=== PATIENT | male | born 1945 | race Caucasian/White ===

== ENCOUNTER 2016-04-22 01:45 | Emergency (ER) | payer OTHER ==
[2016-04-22 03:12] LABS: Albumin 3.9 g/dL (3.2-5.2); Calcium 9.5 mg/dL (8.6-10.3); EGFR African American 128.8 (>60); EGFR Non-African American 100.2 (>60); Globulin 3.2 g/dL (2-4); Hematocrit 42 % (42-52); Hemoglobin 14.1 g/dl (14.0-18.0); Magnesium 2.1 mg/dL (1.9-2.7); Mean Corpuscular HGB Conc 33 g/dl (31-36); Mean Corpuscular Hemoglobin 30 pg (27-31); Mean Corpuscular Volume 90 fL (80-94); Mean Platelet Volume 9 um3 (7.4-10.4); Potassium 3.6 mmol/L (3.5-5.0); Red Blood Count 4.67 10^6/ul (4.0-5.4); Red Cell Distribution Width 14 % (10.5-15); Total Bilirubin 0.7 mg/dL (0.2-1.0); Total Protein 7.1 g/dL (6.4-8.9); White Blood Count 12.3 10^3/ul (3.5-10.8)
--- NOTE | 2016-04-22 03:14 | ED ---
Primo Soliz Erika, scribed for Prasanna Guallpa MD on 04/22/16 at 0242 . HPI Chest Pain - HPI Summary HPI Summary: Patient is a 70-year-old male presenting to the ED with a CC of constant chest pain starting at 17:30. Pain is located across the lower chest bilaterally. Patient reports that he had just been exerting himself when the pain began - pt did exercises and collected trash from around the house. Pt took Gas-X after the pain began, which alleviated the pain for a few minutes, but it then returned. Pain is not aggravated by deep breathing or movement. Currently, patient reports pain is a 6/10. He also notes slight nausea. Pt did not eat dinner tonight. Hx rectal cancer with surgery in 2009. - History of Current Complaint Chief Complaint: EDChestPainROMI Time Seen by Provider: 04/22/16 02:32 Hx Obtained From: Patient, Family/Cherry Grower - Onset/Duration: Started Hours Ago, Atraumatic, Still Present Timing: Constant Current Severity: Moderate Pain Intensity: 7 Pain Scale Used: 0-10 Numeric Chest Pain Location: Diffuse - lower chest Chest Pain Radiates: No Aggravating Factor(s): Nothing Alleviating Factor(s): Other: - Gas-X helped for a few minutes Associated Signs and Symptoms: Positive: Nausea - Additional Pertinent History Primary Care Physician: [id number] - Allergy/Home Medications Allergies/Adverse Reactions: Allergies Allergy/AdvReac Type Severity Reaction Status Date / Time No Known Allergies Allergy Verified 04/22/16 01:57 Home Medications: Home Medications Atorvastatin* [Lipitor*] 10 mg PO 2100 04/22/16 [History Confirmed 04/22/16] Citalopram TAB* [CeleXA TAB*] 10 mg PO DAILY 04/22/16 [History Confirmed ] Clorazepate TAB* [Tranxene TAB*] 7.5 mg PO QPM 04/22/16 [History Confirmed 04/22] Ergocalciferol [Vitamin D2] 50,000 unit PO WEEKLY 04/22/16 [History Confirmed ] PMH/Surg Hx/FS Hx/Imm Hx Endocrine/Hematology History: Reports: Hx Thyroid Disease - hyperthyroidism Denies: Hx Diabetes, Hx Systemic Lupus Erythematosus Cardiovascular History: Reports: Hx Hypertension, Hx Syncope - pre-syncope Denies: Hx Angina, Hx Congestive Heart Failure, Hx Coronary Artery Disease, Hx Hypercholesterolemia, Hx Myocardial Infarction, Hx Valvular Heart Disease Respiratory History: Reports: Hx Chronic Obstructive Pulmonary Disease (COPD), Hx Sleep Apnea Denies: Hx Asthma GI History: Reports: Hx Ileostomy - Fall 2009, Other GI Disorders - rectal cancer, with ileostomy, had radiation and chemo History: Reports: Other Problems/Disorders - hesitancy s/p radiation Denies: Hx Renal Disease Musculoskeletal History: Reports: Hx Arthritis, Hx Back Problems Denies: Hx Rheumatoid Arthritis Sensory History: Reports: Hx Contacts or Glasses Opthamlomology History: Reports: Hx Contacts or Glasses - Cancer History Cancer Type, Location and Year: RECTAL CANCER 6 YEARS AGO Hx Chemotherapy: Yes Hx Radiation Therapy: Yes - Surgical History Surgery Procedure, Year, and Place: STOMA TO LEFT SIDE APROX 6 YEARS AGO, RIGHT KNEE SURGERY, TONSILECTOMY Hx Anesthesia Reactions: No - Immunization History Date of Tetanus Vaccine: utd Date of Influenza Vaccine: fall 2015 Infectious Disease History: No Infectious Disease History: Denies: Traveled Outside the [place] in Last 30 Days - Family History Known Family History: Negative: Cardiac Disease, Hypertension - Social History Alcohol Use: Rare Alcohol Amount: 3-6 beers/day Substance Use Type: Reports: None Substance Use Comment - Amount & Last Used: none in last 5 days, per pt, d/t illness Smoking Status (MU): Former Smoker Type: Cigarettes Amount Used/How Often: 7 cigarettes per day Have You Smoked in the Last Year: Yes Review of Systems Positive: Chest Pain Positive: Nausea All Other Systems Reviewed And Are Negative: Yes Physical Exam Triage Information Reviewed: Yes Vital Signs On Initial Exam: Initial Vitals Temp Pulse Resp BP Pulse Ox 97.8 F 57 18 163/89 100 04/22/16 01:45 04/22/16 01:45 04/22/16 01:45 04/22/16 01:45 04/22/16 01:45 Vital Signs Reviewed: Yes Appearance: Positive: Well-Appearing, No Pain Distress Skin: Positive: Warm Head/Face: Positive: Normal Head/Face Inspection Eyes: Positive: EOMI, SADAF ENT: Positive: Hearing grossly normal Neck: Positive: Supple Respiratory/Lung Sounds: Positive: Clear to Auscultation, Breath Sounds Present Cardiovascular: Positive: RRR. Negative: Murmur Abdomen Description: Positive: Nontender, Soft Bowel Sounds: Positive: Present Musculoskeletal: Positive: Strength/ROM Intact Neurological: Positive: Sensory/Motor Intact, Alert, Oriented to Person Place, Time Psychiatric: Positive: Affect/Mood Appropriate - Joselo Coma Scale Coma Scale Total: 15 Diagnostics - Vital Signs Vital Signs Temp Pulse Resp BP Pulse Ox 04/22/16 01:45 97.8 F 57 18 163/89 100 - Laboratory Lab Results: Lab Results 04/22/16 04/22/16 Range/Units 02:40 02:40 Sodium 133 (133-145) mmol/L Potassium 3.6 (3.5-5.0) mmol/L Chloride 103 (101-111) mmol/L Carbon Dioxide 24 (22-32) mmol/L Anion Gap 6 (2-11) mmol/L BUN 10 (6-24) mg/dL Creatinine 0.77 (0.67-1.17) mg/dL Est GFR ( Amer) 128.8 (>60) Est GFR (Non-Af Amer) 100.2 (>60) BUN/Creatinine Ratio 13.0 (8-20) Glucose 101 H (70-100) mg/dL Lactic Acid 1.5 (0.5-2.0) mmol/L Calcium 9.5 (8.6-10.3) mg/dL Magnesium 2.1 (1.9-2.7) mg/dL Total Bilirubin 0.70 (0.2-1.0) mg/dL AST 39 (13-39) U/L ALT 36 (7-52) U/L Alkaline Phosphatase 81 (34-104) U/L Troponin I Pending Total Protein 7.1 (6.4-8.9) g/dL Albumin 3.9 (3.2-5.2) g/dL Globulin 3.2 (2-4) g/dL Albumin/Globulin Ratio 1.2 (1-3) Lipase 24 (11.0-82.0) U/L Result Diagrams: 04/22/16 02:40 04/22/16 02:40 Lab Statement: Any lab studies that have been ordered have been reviewed, and results considered in the medical decision making process. - Radiology CXR Xray Interpretation: No Acute Changes Radiology Interpretation Completed By: ED Physician - EKG 01:58 Cardiac Rate: Bradycardia - at 50 bpm EKG Rhythm: Sinus Bradycardia Re-Evaluation - Re-Evaluation First Eval Re-Evaluation Time: 06:44 Change: Improved Comment: Discussed troponin results. Patient will be discharged and agrees with this plan Chest Pain Course/Dx - Course Assessment/Plan: Patient is a 70 y/o M presenting to the ED with a CC of exertional chest pain which is not aggravated by movement or deep breathing. Associated symptoms include nausea. EKG shows sinus bradycardia. CXR shows no acute changes. Initial troponin is 0.00. Repeat troponin is 0.01. Patient will be discharged home with follow up from his PCP. - Diagnoses Provider Diagnoses: ACS (acute coronary syndrome) Discharge - Discharge Plan Condition: Stable Disposition: HOME Patient Education Materials: Chest Pain (ED) Referrals: [facility] [place] PHYSICIAN REFERRAL [Outside] Additional Instructions: Please follow up with your PCP. The documentation as recorded by the Primo de la torre Erika accurately reflects the service I personally performed and the decisions made by me, Prasanna Guallpa MD.
[2016-04-22 03:22] LABS: Add Diff/Slide Review? Slide Review Added; Comments Flag Yes
[2016-04-22 06:50] VITALS: BP 118/49
--- NOTE | 2016-04-22 08:28 | RAD ---
INDICATION: Chest pain COMPARISON: November 11, 2015 TECHNIQUE: PA and lateral dual-energy views were obtained. FINDINGS: Bones/Soft Tissues: There are no acute bony findings. Cardiomediastinal: The cardiomediastinal silhouette is normal. Lungs: There are no infiltrates. There is hyperinflation Pleura: There are no pleural effusions. Other: None IMPRESSION: HYPERINFLATION. NO ACTIVE DISEASE.
== END 2016-04-22 07:05 | disposition home or self-care (01) ==
LOC: ED 01:45
DX: I24.9 Acute ischemic heart disease, unspecified (principal); R07.9 Chest pain, unspecified; R11.0 Nausea; Z87.891 Personal history of nicotine dependence
CPT/HCPCS: 36415; 71020; 80053; 83605; 83690; 83735; 84484; 85025; 93005; 99283

== ENCOUNTER 2016-04-29 09:29 | Inpatient (IN) | payer OTHER, MEDICARE ==
[~2016-04-29 09:29] MED LIST: Buffered Lidocaine 1% SYRIN* 3 ML/SYR SYRINGE INTRADERM ONE
[2016-04-29 10:16] LABS: Calcium (PTH Intact) 9.5 mg/dL (8.6-10.3)
[2016-04-29] MEDS ORDERED: Bacitracin OINTMENT* 1 TUBE ONE (10:56)
[2016-04-29] MEDS ORDERED: Lidocain 1% EPI 1:100,000 * 30 ML MDV ONE (10:56)
[2016-04-29] MEDS ORDERED: fentaNYL* 50 MCG/ML 2 ML VIAL (100 MCG VIAL) ONE ×5 (11:09→16:11)
[2016-04-29] MEDS ORDERED: Propofol* 10 MG/ML 20 ML BTL IV PUSH ONE ×2 (11:09→16:11)
[2016-04-29] MEDS ORDERED: Midazolam* 1 MG/ML 5 ML VIAL (5 MG) ONE (11:09)
[2016-04-29] MEDS ORDERED: DiMENhydriNATE IV* 50 MG/ML VIAL IV PUSH PRN (13:23)
[2016-04-29] MEDS ORDERED: oxyCODONE/Acetamin 5/325 MG* TAB PO PRN (13:23)
[2016-04-29] MEDS ORDERED: HYDROcodone/ACETAMIN 5-325 MG* 1 TAB PO PRN ×3 (13:23→18:23)
[2016-04-29] MEDS ORDERED: Ondansetron INJ* 2 MG/ML VIAL IV PRN ×3 (13:23→18:26)
[2016-04-29] MEDS: fentaNYL* 50 MCG/ML 2 ML VIAL (100 MCG VIAL) IV PRN ×4 (14:46→15:55)
[2016-04-29] MEDS ORDERED: Midazolam* 1 MG/ML 2 ML VIAL (2 MG) ONE (16:11)
[2016-04-29] MEDS ORDERED: ceFAZolin 1 GM in Dextrose (*) 2 GM/100 ML BAG IVPB ONE (16:37)
[2016-04-29 16:45] LABS: Hematocrit 32 % (42-52); Hemoglobin 10.5 g/dl (14.0-18.0)
[2016-04-29] MEDS ORDERED: Succinylcholine* 20 MG/ML 10 ML VIAL ONE (16:47)
[2016-04-29] MEDS ORDERED: Phenylephrine IV* 40 MCG/ML 10 ML SYRINGE ONE (17:02)
[2016-04-29] MEDS ORDERED: fentaNYL* 50 MCG/ML 2 ML VIAL (100 MCG VIAL) IV PRN (17:27)
[2016-04-29] MEDS: HYDROmorphone* 1 MG/ML 1 ML SYR IV PRN ×5 (17:53→18:07)
[2016-04-29] MEDS ORDERED: HYDROmorphone* 1 MG/ML 1 ML SYR ONE (17:55)
--- NOTE | 2016-04-29 18:02 | RAD ---
INDICATION: Evaluate for foreign body COMPARISON: None TECHNIQUE: A single crosstable lateral view of the upper chest to include the skull base is submitted FINDINGS: There is no radiopaque foreign body. This single intraoperative crosstable lateral image will be relatively insensitive in evaluating for a foreign body in the upper chest due to technical factors.,
[2016-04-29] MEDS ORDERED: Ibuprofen TAB* 800 MG PO PRN (18:22)
[2016-04-29] MEDS ORDERED: ceFAZolin 500 MG VIAL(*) 500 MG in NS 0.9% 50 ML* 50 ML IVPB SCH (20:00)
[2016-04-29] MEDS: Calcium Carbonate CHEW TAB* 500 MG (TUMS) PO SCH (21:22)
[2016-04-29] MEDS: Morphine INJ* 2 MG/ML 1 ML SYRINGE IV PRN ×2 (21:23→23:47)
[2016-04-29 22:07] LABS: Hematocrit 28 % (42-52); Hemoglobin 9.3 g/dl (14.0-18.0)
--- NOTE | 2016-04-30 00:12 | HP ---
HISTORY AND PHYSICAL: DATE OF ADMISSION: 04/29/16 PRIMARY CARE PROVIDER: So Ruiz NP PRIMARY CARE PHYSICIAN: Dr. Kaelyn Chapman* (dictated by Zoe Tejada NP). CHIEF COMPLAINT: Status post total thyroidectomy. HISTORY OF PRESENT ILLNESS: Mr. Eli is a 70-year-old male with a past medical history significant for rectal carcinoma, Graves' disease, chronic obstructive pulmonary disease, pulmonary hypertension, paroxysmal atrial fibrillation, obstructive sleep apnea, chronic back pain, who presented to the emergency room today for an elective total thyroidectomy with Dr. Adan. The patient states that leading up to his surgery, he has been in a good state of health with the exception of chest discomfort he had on April 22, at which point he was evaluated in the emergency room and discharged home. The patient reports that it was felt that his pain was indigestion or gas discomfort. The patient was seen by his escalator constructor, Dr. Mitchel Young, and was given preoperative clearance. The patient denied any recent fever, chills, shortness of breath, chest pain, nausea, or vomiting. The patient underwent a total thyroidectomy earlier today and subsequently was taken back to the operating room for control of bleeding. Dr. Adan asked the hospitalists to assist with admitting this patient in his postoperative period. PAST MEDICAL HISTORY: 1. Presyncope. 2. Chronic obstructive pulmonary disease. 3. Obstructive sleep apnea. 4. Rectal carcinoma, status post radiation and chemotherapy. 5. Arthritis. 6. Chronic back pain. 7. Graves' disease. 8. Paroxysmal atrial fibrillation. 9. Elise-Guerrero tear. PAST SURGICAL HISTORY: 1. Status post ostomy placement in 2009. 2. Status post right knee surgery in 1979. 3. Status post tonsillectomy as a child. HOME MEDICATIONS: Include: 1. Seroquel 25 mg oral daily at bedtime as needed for sleep. 2. Metoprolol tartrate 12.5 mg oral daily. 3. Eliquis 5 mg oral twice daily. 4. Methimazole 10 mg oral twice daily. 5. Clorazepate 7.5 mg oral every evening. 6. Citalopram 10 mg oral daily. 7. Atorvastatin 10 mg oral every morning. ALLERGIES: Include no known drug allergies. FAMILY HISTORY: The patient reports a half-brother with history of myocardial infarction who passed at age 42. He has a sister who passed from an unknown cancer. The patient's mother passed at age 78 from multiple medical issues. The patient denies any family history of diabetes mellitus. SOCIAL HISTORY: The patient is a former smoker smoking 1 to 1-1/2 packs of cigarettes daily for 40 years. He quit approximately a year ago. The patient occasionally drinks alcoholic beverages. The patient denies recreational drug use. The patient is retired. Lives with his . His , Niki Eli, will be his surrogate decision maker in the event he is unable to make decisions for himself. REVIEW OF SYSTEMS: I performed a 14-point review of systems. All the pertinent positives and negatives are mentioned in the history of present illness. The remaining review of systems are negative. PHYSICAL EXAMINATION GENERAL APPEARANCE: The patient is alert, pleasant, and appears to be in no acute distress. VITAL SIGNS: Temperature 95.9, heart rate 60, respiratory rate 14, O2 100% on 4 L via nasal cannula, blood pressure 108/60 with arm cuffs and 127/57 via arterial line. HEENT: Normocephalic, atraumatic. Pupils are equal and reactive to light. Extraocular movements are intact. NECK: There is an anterior incision with Steri-Strips well approximated. There is also a ANA drain in place. RESPIRATORY: There is no accessory muscle use and the lungs are clear to auscultation bilaterally. CARDIAC: Regular rate and rhythm. S1 and S2 present. There is no murmurs, rubs, or gallops heard. ABDOMEN: Soft, nontender, nondistended. There are bowel sounds present x4. The patient has an ostomy to the left side of his abdomen. EXTREMITIES: There is no lower extremity edema. DP and PT pulses are 2+ and symmetric. MUSCULOSKELETAL: There is no clubbing or cyanosis noted. The patient exhibits good strength in all extremities. NEUROLOGIC: The patient is alert and oriented x4. Cranial nerves II through XII are grossly intact. PSYCHOLOGICAL: The patient is calm and cooperative. SKIN: There are no rashes or abnormalities seen. DIAGNOSTIC STUDIES/LABORATORY DATA: From 04/22/16, sodium 133, potassium 3.6, chloride 103, CO2 24, BUN 16, creatinine 0.77, glucose 101. White blood cell count 12.3, hemoglobin 14.1, hematocrit 42, and platelet count 188. Chest x-ray shows hyperinflation and no active disease. EKG shows atrial fibrillation with a rate of 135. Cervical spine x-ray from today. Radiologist's impression: There is non- radiopaque foreign body. This single intraoperative cross-table lateral image will be relatively insensitive in evaluating a foreign body in the upper chest due to technical factors. IMPRESSION: Mr. Eli is a 70-year-old male with past medical history significant for chronic obstructive pulmonary disease, pulmonary hypertension, paroxysmal atrial fibrillation, obstructive sleep apnea, and Graves' disease, who presented to the hospital today for a total thyroidectomy with Dr. Adan. He will be admitted an an inpatient status post total thyroidectomy. 1. Status post total thyroidectomy. Management per Dr. Adan. It is to note that the patient had to be returned to the operating room for evaluation of bleeding postoperatively. The patient will be on calcium carbonate 3 times daily. He will have calcium levels drawn at 2200 tonight, 6 a.m., and noon tomorrow. The patient will have pain medication as needed. 2. History of coronary artery disease. The patient will be continued on his statin and beta-george. He should be resumed on his Eliquis when his bleeding risk has been minimalized. 3. Obstructive sleep apnea. The patient should be continued on his home CPAP. 4. COPD. No exacerbation at this time. 5. Pulmonary hypertension. The patient follows with Pulmonology outpatient. 6. Paroxysmal atrial fibrillation. The patient is in sinus rhythm at this time. He will be continued on his beta-george. The patient's Eliquis will be resumed when the bleeding risk has been minimalized. 7. Fluids, electrolytes, and nutrition. The patient will be started on a clear liquid, advance to soft diet as tolerated. 8. Code status. Full code. 9. DVT prophylaxis. The patient is at moderate risk. He will have SCDs. Chemical DVT prophylaxis is contraindicated at this time due to his postoperative bleeding. 10. Disposition. Inpatient. Disposition per ENT. TIME SPENT: Time spent for this admission was 60 minutes, and 35 minutes was spent [id number] with the patient discussing medications, past medical history , and the events leading up to his arrival today and performing a physical examination. The case has been reviewed with the attending, Dr. Chapman, who agrees with the plan of care. Reviewed by ZOEBOSTON BOSTON 04/30/16 1800 C: So Ruiz, FRANCISCO JAVIER* [id number]/[facility] #: [id number] GEO
[2016-04-30] MEDS: ceFAZolin 500 MG VIAL(*) 500 MG in NS 0.9% 50 ML* 50 ML IVPB SCH ×3 (01:13→17:58)
[2016-04-30] MEDS: Morphine INJ* 2 MG/ML 1 ML SYRINGE IV PRN ×5 (03:13→15:42)
[2016-04-30 05:58] LABS: Hematocrit 25 % (42-52); Hemoglobin 8.5 g/dl (14.0-18.0)
--- NOTE | 2016-04-30 07:27 | OP ---
OPERATIVE REPORT: DATE OF OPERATION: 04/29/16 DATE OF : 47 SURGEON: Roman Adan MD [employer]MENT REPAIRER: Cholo Manrique MD PRE-OP DIAGNOSES: Graves disease and hyperthyroidism. POST-OP DIAGNOSES: Graves disease and hyperthyroidism. OPERATIVE PROCEDURE: Total thyroidectomy. ESTIMATED BLOOD LOSS: Approximately 100 mL. SPECIMEN: Total thyroid. COMPLICATIONS: None. DESCRIPTION OF PROCEDURE: This is a 70-year-old male with hyperthyroidism secondary to Graves disea se who has been difficult to manage on methimazole. He has had problems with atrial fibrillation si gnificant weight loss and anxiety. The decision was made to proceed with total thyroidectomy. On 04/29/16, the patient was brought to the operating room. General anesthesia was induced and a NIM's endotracheal tube was placed. Placement was confirmed visually and the electrodes were found to be in good working order. The patient's neck was then prepped with Betadine, draped sterilely, and a t lisa-out was performed. Approximately 6 cc of 1% lidocaine with epinephrine were infiltrated into th e intended incision line. A 15 blade was used to make an incision through skin and subcutaneous sof t tissue. The platysma muscle was then divided with a Bovie. Subplatysmal flaps were raised superi сергей and inferiorly. The strap muscles were then divided vertically and the dissection was begun on the left side. The superior pole vascular pedicle was identified, ligated with hemoclips, and divi ded with the LigaSure device. Attention was then turned inferiorly. The tracheoesophageal groove re gion was explored until the recurrent laryngeal nerve was identified. This was used as the landmark to guide further dissection. Inferior pole vascular pedicle was ligated close to the gland in an e ffort to preserve parathyroid tissue. The middle thyroid vein was also ligated and divided. The re current laryngeal nerve was followed superiorly to its point of insertion under the cricothyroid mus kam. Two probable parathyroid candidates were visualized and preserved in the course of dissection. Attention was then turned towards the right lobe. The right superior pole region was explored. It was ligated with Hemoclips and divided with the LigaSure device. Dissection was then undertaken inf eriorly. Again, the recurrent laryngeal nerve was identified and used as a guide for further dissec tion. The inferior vascular pedicle was ligated with Hemoclips close to the capsule of the gland in an effort to preserve parathyroid tissue and the middle thyroid vein was ligated and divided as wel l. On both sides, Bains's ligament was transected with the bipolar forceps and scissors. A small c uff of thyroid tissue was left in the region of Bains's ligament to protect the recurrent laryngeal nerves. Once the thyroid gland was removed, both nerves were visually intact and both stimulated ni rogelio with the probe on the NIM's monitor. The wound was then copiously irrigated. A Valsalva was p erformed. A few small point areas of bleeding were controlled with bipolar forceps. Surgicel was p laced in the region of Bains's ligament on both sides. A #10 ANA was then placed. The strap muscles were reapproximated with 4-0 Vicryl. The platysma was also reapproximated with 4-0 Vicryl. Skin wa s closed with 5-0 nylon. A #10 ANA was placed prior to closure. The patient was then returned to [facility] care of the anesthesiologist, extubated, and delivered to the PACU in stable condition. [id number]/[facility] #: [id number]
--- NOTE | 2016-04-30 08:58 | PN ---
Subjective Date of Service: 04/30/16 Interval History: Patient seen and examined at bedside. Pt states that is wasn't able to sleep well overnight. Denies fever, chills, shortness of breath, chest discomfort, N/V /D, numbness or tingling of the lips or fingers. Pt states that it hurts to swallow. Pt required to be straight cathed last evening, was able to urinate 100 ml this AM. Reports discomfort in his throat and trouble swallowing. Tele: Sinus guanaco, rate 50-60's. Family History: Unchanged from Admission Social History: Unchanged from Admission Past Medical History: Unchanged from Admission Objective Active Medications: Hydrocodone Bitart/Acetaminophen ([place] 5-325 Tab*) 1 tab PO Q4H PRN Reason: PAIN - MILD TO MODERATE Hydrocodone Bitart/Acetaminophen ([place] 5-325 Tab*) 2 tab PO Q4H PRN Reason: PAIN - MODERATE TO SEVERE Atorvastatin Calcium (Lipitor*) 10 mg PO QAM [facility] Calcium Carbonate (Tums*) 1,000 mg PO TID ARELY Citalopram Hydrobromide (Celexa Tab*) 10 mg PO DAILY ARELY Clorazepate Dipotassium (Tranxene Tab*) 7.5 mg PO QPM ARELY Lactated Ringer's (Lactated Ringers 1000 Ml Bag*) 1,000 mls @ 100 mls/hr IV PER RATE ARELY Cefazolin Sodium 500 mg/ (Sodium Chloride) 50 mls @ 200 mls/hr IVPB Q8H ARELY Ibuprofen (Motrin Tab*) 800 mg PO Q8H PRN Reason: PAIN Metoprolol Tartrate (Lopressor Tab*) 12.5 mg PO DAILY ARELY Morphine Sulfate (Morphine Inj (Syringe)*) 2 mg IV Q2H PRN Reason: PAIN - SEVERE Ondansetron HCl (Zofran Inj*) 4 mg IV Q6H PRN Reason: NAUSEA Vital Signs 04/29/16 04/29/16 04/29/16 09:28 14:30 14:35 Temperature 98.1 F 96.8 F Pulse Rate 54 74 70 Respiratory 16 16 13 Rate Blood Pressure 125/84 145/58 143/70 (mmHg) O2 Sat by Pulse 92 93 94 Oximetry 04/29/16 04/29/16 04/29/16 14:40 14:45 14:46 Temperature Pulse Rate 68 67 Respiratory 14 12 16 Rate Blood Pressure 143/66 145/69 (mmHg) O2 Sat by Pulse 94 94 Oximetry 04/29/16 04/29/16 04/29/16 14:49 14:51 15:00 Temperature Pulse Rate 69 Respiratory 16 12 15 Rate Blood Pressure 150/58 (mmHg) O2 Sat by Pulse 94 Oximetry 04/29/16 04/29/16 04/29/16 15:15 15:30 15:42 Temperature 98.0 F Pulse Rate 66 68 68 Respiratory 13 13 13 Rate Blood Pressure 142/59 150/64 150/64 (mmHg) O2 Sat by Pulse 95 95 95 Oximetry 04/29/16 04/29/16 04/29/16 15:45 15:55 16:00 Temperature Pulse Rate 68 Respiratory 14 13 Rate Blood Pressure 142/64 (mmHg) O2 Sat by Pulse 96 Oximetry 04/29/16 04/29/16 04/29/16 16:06 16:50 17:22 Temperature Pulse Rate 87 Respiratory 16 Rate Blood Pressure 122/71 106/77 113/50 (mmHg) O2 Sat by Pulse 96 Oximetry 04/29/16 04/29/16 04/29/16 17:23 17:25 17:30 Temperature 95.9 F Pulse Rate 64 64 64 Respiratory 12 11 12 Rate Blood Pressure 116/48 100/45 (mmHg) O2 Sat by Pulse 92 91 93 Oximetry 04/29/16 04/29/16 04/29/16 17:35 17:40 17:41 Temperature Pulse Rate 63 63 63 Respiratory 11 12 23 Rate Blood Pressure 106/51 122/47 103/49 (mmHg) O2 Sat by Pulse 96 97 97 Oximetry 04/29/16 04/29/16 04/29/16 17:45 17:50 17:53 Temperature Pulse Rate 64 62 Respiratory 15 12 14 Rate Blood Pressure 119/48 91/43 (mmHg) O2 Sat by Pulse 97 97 Oximetry 04/29/16 04/29/16 04/29/16 17:55 17:58 17:59 Temperature Pulse Rate 60 Respiratory 11 12 10 Rate Blood Pressure 84/61 (mmHg) O2 Sat by Pulse 99 Oximetry 04/29/16 04/29/16 04/29/16 18:00 18:02 18:05 Temperature Pulse Rate 61 129 Respiratory 10 10 12 Rate Blood Pressure 112/45 95/47 (mmHg) O2 Sat by Pulse 92 93 Oximetry 04/29/16 04/29/16 04/29/16 18:07 18:15 18:30 Temperature Pulse Rate 63 62 Respiratory 10 7 10 Rate Blood Pressure 100/63 100/63 (mmHg) O2 Sat by Pulse 100 100 Oximetry 04/29/16 04/29/16 04/29/16 18:45 18:54 19:00 Temperature Pulse Rate 63 Respiratory 12 Rate Blood Pressure 89/65 130/90 112/42 (mmHg) O2 Sat by Pulse Oximetry 04/29/16 04/29/16 04/29/16 19:15 19:30 19:45 Temperature Pulse Rate 58 61 59 Respiratory 14 12 13 Rate Blood Pressure 106/55 104/40 117/56 (mmHg) O2 Sat by Pulse 99 100 100 Oximetry 04/29/16 04/29/16 04/29/16 20:00 20:15 20:30 Temperature Pulse Rate 57 59 64 Respiratory 10 10 12 Rate Blood Pressure 103/53 103/48 108/54 (mmHg) O2 Sat by Pulse 100 100 99 Oximetry 04/29/16 04/29/16 04/29/16 20:35 20:45 21:00 Temperature Pulse Rate 59 56 Respiratory 10 10 10 Rate Blood Pressure 103/48 107/55 (mmHg) O2 Sat by Pulse 95 99 Oximetry 04/29/16 04/29/16 04/29/16 21:15 21:23 21:30 Temperature Pulse Rate 55 61 Respiratory 10 16 10 Rate Blood Pressure 108/50 104/50 (mmHg) O2 Sat by Pulse 98 99 Oximetry 04/29/16 04/29/16 04/29/16 21:45 22:00 22:15 Temperature Pulse Rate 56 57 56 Respiratory 11 12 8 Rate Blood Pressure 101/50 104/49 103/47 (mmHg) O2 Sat by Pulse 98 98 97 Oximetry 04/29/16 04/29/16 04/29/16 22:30 22:45 23:00 Temperature Pulse Rate 54 53 53 Respiratory 9 10 10 Rate Blood Pressure 96/44 104/47 92/48 (mmHg) O2 Sat by Pulse 98 93 94 Oximetry 04/29/16 04/29/16 04/29/16 23:08 23:15 23:30 Temperature Pulse Rate 53 54 57 Respiratory 10 11 12 Rate Blood Pressure 97/46 107/50 (mmHg) O2 Sat by Pulse 93 93 92 Oximetry 04/29/16 04/29/16 04/29/16 23:45 23:47 23:55 Temperature 98.1 F Pulse Rate 56 Respiratory 11 13 Rate Blood Pressure 102/48 (mmHg) O2 Sat by Pulse 99 Oximetry 04/30/16 04/30/16 04/30/16 00:00 00:01 00:26 Temperature Pulse Rate 58 56 Respiratory 13 10 Rate Blood Pressure 108/48 (mmHg) O2 Sat by Pulse 100 100 99 Oximetry 04/30/16 04/30/16 04/30/16 01:00 02:00 03:00 Temperature Pulse Rate 54 54 59 Respiratory 10 10 12 Rate Blood Pressure (mmHg) O2 Sat by Pulse 95 95 98 Oximetry 04/30/16 04/30/16 04/30/16 03:13 04:00 05:00 Temperature 97.4 F Pulse Rate 55 52 Respiratory 12 10 10 Rate Blood Pressure 111/51 (mmHg) O2 Sat by Pulse 100 98 Oximetry 04/30/16 04/30/16 04/30/16 05:52 06:00 06:24 Temperature Pulse Rate 53 Respiratory 10 11 10 Rate Blood Pressure (mmHg) O2 Sat by Pulse 97 Oximetry 04/30/16 04/30/16 04/30/16 07:00 07:59 08:00 Temperature 98.8 F Pulse Rate 62 53 Respiratory 13 10 Rate Blood Pressure 112/51 (mmHg) O2 Sat by Pulse 100 99 Oximetry Oxygen Devices in Use Now: Nasal Cannula - 4L Appearance: NAD, laying in bed Eyes: No Scleral Icterus, PERRLA Ears/Nose/Mouth/Throat: NL Teeth, Lips, Gums, Mucous Membranes Moist Neck: NL Appearance and Movements; NL JVP, Trachea Midline Respiratory: Symmetrical Chest Expansion and Respiratory Effort, Clear to Auscultation Cardiovascular: NL Sounds; No Murmurs; No JVD, RRR Abdominal: NL Sounds; No Tenderness; No Distention Extremities: No Edema Skin: - - Incision to anterior neck with steri strips clean, dry and intact. ANA drain in place. Neurological: Alert and Oriented x 3, NL Muscle Strength and Tone Lines/Tubes/Other Access: Clean, Dry and Intact Peripheral IV - x 2 site benign , Clean, Dry and Intact Arterial Line - site benign Nutrition: Taking PO's Result Diagrams: 04/30/16 11:38 Assess/Plan/Problems-Billing Assessment: Mr. Eli is a 70 yo male with PMH significant for COPD, pulmonary HTN, Paroxysmal afib, DARRELL and Graves' disease who presented to the hospital for an elective total thyroidectomy with Dr. Adan. - Patient Problems (1) Status post total thyroidectomy Code(s): E89.0 - POSTPROCEDURAL HYPOTHYROIDISM SNOMED Code(s): 937279512 Comment: - POD #1. Pt required a return to the OR for control of bleeding last night. - Management per Dr. Adan - Negative Chvostek's and Trousseau's signs - Continue to trend HH and Calcium - Swallow eval pending (2) History of coronary artery disease Code(s): Z86.79 - PERSONAL HISTORY OF OTHER DISEASES OF THE CIRCULATORY SYSTEM SNOMED Code(s): 030006357 Comment: - Denies chest discomfort - Continue statin and beta-george - Resume Eliquis when bleeding risk has been minimalized (3) Urinary retention Code(s): R33.9 - RETENTION OF URINE, UNSPECIFIED SNOMED Code(s): 566555549 Comment: - Pt unable to urinate last night and straight cathed for 2,400 ml - Pt has been able to urinate 100 ml this AM - Will continue to monitor (4) DARRELL (obstructive sleep apnea) Code(s): G47.33 - OBSTRUCTIVE SLEEP APNEA (ADULT) (PEDIATRIC) SNOMED Code(s): 28706900 Comment: - CPAP while napping and at HS (5) COPD (chronic obstructive pulmonary disease) Code(s): J44.9 - CHRONIC OBSTRUCTIVE PULMONARY DISEASE, UNSPECIFIED SNOMED Code(s): 70821376 Comment: - No exacerbation at this time (6) Paroxysmal a-fib Code(s): I48.0 - PAROXYSMAL ATRIAL FIBRILLATION SNOMED Code(s): 347987599 Comment: - Sinus rhythm at this time - Continue Metoprolol - Resume Eliquis when bleeding risk is minimalized (7) H/O malignant neoplasm of rectum Code(s): Z85.048 - PRSNL HX OF MALIG NEOPLM OF RECTUM, RECTOSIG JUNCT, AND ANUS SNOMED Code(s): 137251433 Comment: - No issues - Routine ostomy care (8) Pulmonary HTN Code(s): I27.2 - OTHER SECONDARY PULMONARY HYPERTENSION SNOMED Code(s): 29729825 Comment: - Likely associated with COPD. - Continue supplemental O2. (9) DVT prophylaxis Code(s): YCS8937 - SNOMED Code(s): 413636475 Comment: - SCDs, only in the setting of a post-op bleed (10) Full code status Current Visit: No Code(s): Z78.9 - OTHER SPECIFIED HEALTH STATUS SNOMED Code (s): 977813976 Status and Disposition: Inpatient. Possible discharge in the next 1-2 days.
[2016-04-30] MEDS ORDERED: Citalopram TAB* 10 MG PO SCH (09:00)
[2016-04-30] MEDS ORDERED: Atorvastatin* 10 MG TAB PO SCH (09:00)
[2016-04-30] MEDS ORDERED: Metoprolol Tartrate TAB* 25 MG PO SCH ×2 (09:00)
--- NOTE | 2016-04-30 11:01 | OP ---
DATE OF OPERATION: 04/29/16 - ROOM #ICU-09 DATE OF : 47 SURGEON: Roman Adan MD [employer] OPERATOR: Cholo Manrique MD. ANESTHESIA: General. PRE-OP DIAGNOSIS: Postoperative hematoma. POST-OP DIAGNOSIS: Postoperative hematoma. OPERATIVE PROCEDURE: Evacuation of postoperative hematoma and controlled hemorrhage in the neck. EBL: Approximately 500 cc intraoperatively with a total of about 1000 cc for the entire encounter. DESCRIPTION OF PROCEDURE: This is a patient who had had a total thyroidectomy approximately 2 hours prior to developing a sudden onset of hematoma in the neck following a coughing fit. He was evaluated in the ICU, which is where he was boarding. His neck was opened at the bedside, which resulted in significant improvement immediately in his ability to breathe, but the decision was made to bring him back to the operating room to fully evacuate the hematoma and identify the source of hemorrhage. The patient was brought to the operating room, he was reintubated and the neck was prepped with Betadine. The remainder of the stitches were removed. The wound was evacuated of large amount of blood and hematoma. There was active bleeding apparent from the right thyroid bed, a small artery which appeared to be in the mid pole region was the source. This was controlled with a hemoclip. The remainder of the thyroid bed was extensively explored. Other than some minor diffuse oozing, no point sources were seen. Some additional bipolar cautery was undertaken. The wound was irrigated multiple times. Multiple Valsalva's were performed. There was no evidence of active bleeding. A drain was replaced. The wound was reclosed in layers including strap muscle layer, platysma and subsequently skin. The patient was then extubated and delivered to the PACU in stable condition. [id number]/CPS #: [id number] MTDD
[2016-04-30] MEDS: Calcium Carbonate CHEW TAB* 500 MG (TUMS) PO SCH ×2 (11:12→12:25)
[2016-04-30] MEDS: Metoprolol Tartrate IV* 1 MG/ML 5 ML VIAL IV SCH ×2 (11:29→18:01)
[2016-04-30] MEDS: LORazepam INJ* 2 MG/ML 1 ML VIAL IV PUSH PRN ×2 (11:29→21:49)
[2016-04-30 11:46] LABS: Hematocrit 27 % (42-52)
[2016-04-30] MEDS ORDERED: CLORAZEPATE 7.5 MG PO SCH (18:00)
[2016-04-30] MEDS ORDERED: Saline NASAL SPRAY 0.65%* BTL BOTH NARES PRN (19:20)
[2016-05-01] MEDS: Metoprolol Tartrate IV* 1 MG/ML 5 ML VIAL IV SCH ×3 (00:29→12:21)
[2016-05-01] MEDS: ceFAZolin 500 MG VIAL(*) 500 MG in NS 0.9% 50 ML* 50 ML IVPB SCH ×2 (00:38→08:04)
[2016-05-01] MEDS: Morphine INJ* 2 MG/ML 1 ML SYRINGE IV PRN ×3 (01:23→16:20)
[2016-05-01] MEDS: LORazepam INJ* 2 MG/ML 1 ML VIAL IV PUSH PRN ×3 (08:11→23:38)
--- NOTE | 2016-05-01 14:23 | RAD ---
INDICATION: Frequent throat clearing. COMPARISON: There are no prior studies available for comparison. Technique: A swallowing function test was performed in conjunction with the speech pathologist. The patient was fluoroscopically lateral projection while swallowing thin and thick liquids and solids coated with barium. Approximately 1.2 minutes of intermittent fluoroscopic guidance were used during the exam. Findings: The swallowing mechanism was intact. There was no nasopharyngeal reflux or aspiration. After each initial swallow there was some residual material pooling in the vallecula which cleared after a second swallow. IMPRESSION: MILD ORAL PHARYNGEAL DYSPHAGIA. CPT II Codes: 6045F
[2016-05-01] MEDS ORDERED: QUEtiapine TAB* 25 MG PO PRN (14:38)
--- NOTE | 2016-05-01 17:09 | PN ---
Subjective Date of Service: 05/01/16 Interval History: Patient seen and examined at bedside. Denies fever, chills, shortness of breath , chest discomfort, N/V/D. Pt reports that he continues to have throat discomfort. He reports that his anxiety is improving. Family History: Unchanged from Admission Social History: Unchanged from Admission Past Medical History: Unchanged from Admission Objective Active Medications: Hydrocodone Bitart/Acetaminophen ([place] 7.5/325 Liq*) 5 ml PO Q4H PRN Reason: PAIN Atorvastatin Calcium (Lipitor*) 10 mg PO 1700 ARELY Citalopram Hydrobromide (Celexa Tab*) 10 mg PO DAILY ARELY Lactated Ringer's (Lactated Ringers 1000 Ml Bag*) 1,000 mls @ 100 mls/hr IV PER RATE ARELY Lorazepam (Ativan Inj*) 0.5 mg IV PUSH Q6H PRN Reason: ANXIETY Metoprolol Tartrate (Lopressor Tab*) 12.5 mg PO DAILY ARELY Morphine Sulfate (Morphine Inj (Syringe)*) 2 mg IV Q2H PRN Reason: PAIN - SEVERE Ondansetron HCl (Zofran Inj*) 4 mg IV Q6H PRN Reason: NAUSEA Quetiapine Fumarate (Seroquel Tab*) 25 mg PO BEDTIME PRN Reason: SLEEP Sodium Chloride (Sodium Chloride 0.65% Nasal [place]*) 1 spray BOTH NARES Q4H PRN Reason: CONGESTION Vital Signs 04/30/16 04/30/16 04/30/16 17:00 18:00 18:11 Temperature Pulse Rate 65 67 62 Respiratory 14 17 15 Rate Blood Pressure 116/52 (mmHg) O2 Sat by Pulse 99 99 98 Oximetry 04/30/16 04/30/16 04/30/16 18:34 19:00 19:49 Temperature 98.8 F 98.9 F Pulse Rate 60 Respiratory 13 Rate Blood Pressure (mmHg) O2 Sat by Pulse 98 Oximetry 04/30/16 04/30/16 04/30/16 20:00 21:00 21:49 Temperature Pulse Rate 65 65 Respiratory 16 12 16 Rate Blood Pressure 118/60 (mmHg) O2 Sat by Pulse 97 96 Oximetry 04/30/16 04/30/16 04/30/16 22:00 23:00 23:07 Temperature Pulse Rate 69 66 64 Respiratory 18 11 12 Rate Blood Pressure (mmHg) O2 Sat by Pulse 96 96 96 Oximetry 04/30/16 05/01/16 05/01/16 23:36 00:00 00:01 Temperature 98.9 F Pulse Rate 61 61 Respiratory 12 12 Rate Blood Pressure 103/52 (mmHg) O2 Sat by Pulse 97 95 Oximetry 05/01/16 05/01/16 05/01/16 00:53 01:00 01:23 Temperature Pulse Rate 60 Respiratory 11 11 21 Rate Blood Pressure (mmHg) O2 Sat by Pulse 95 Oximetry 05/01/16 05/01/16 05/01/16 02:00 03:00 03:48 Temperature Pulse Rate 65 63 Respiratory 12 0 10 Rate Blood Pressure (mmHg) O2 Sat by Pulse 94 96 Oximetry 05/01/16 05/01/16 05/01/16 04:00 05:00 05:49 Temperature 99.4 F Pulse Rate 61 68 Respiratory 8 17 12 Rate Blood Pressure 119/61 (mmHg) O2 Sat by Pulse 93 96 Oximetry 05/01/16 05/01/16 05/01/16 06:00 07:00 07:52 Temperature 99 F Pulse Rate 61 61 Respiratory 11 10 Rate Blood Pressure (mmHg) O2 Sat by Pulse 95 97 Oximetry 05/01/16 05/01/16 05/01/16 08:00 08:11 08:13 Temperature Pulse Rate 70 Respiratory 12 14 14 Rate Blood Pressure 133/65 (mmHg) O2 Sat by Pulse 95 Oximetry 05/01/16 05/01/16 05/01/16 09:00 09:06 10:00 Temperature Pulse Rate 70 68 Respiratory 15 11 Rate Blood Pressure (mmHg) O2 Sat by Pulse 95 92 98 Oximetry 05/01/16 05/01/16 05/01/16 11:00 11:20 15:38 Temperature 99.1 F 98.1 F Pulse Rate 67 79 Respiratory 10 18 Rate Blood Pressure 114/56 (mmHg) O2 Sat by Pulse 97 100 Oximetry Oxygen Devices in Use Now: Nasal Cannula - 4L Appearance: NAD, laying in bed Eyes: No Scleral Icterus, PERRLA Ears/Nose/Mouth/Throat: NL Teeth, Lips, Gums, Mucous Membranes Moist Neck: NL Appearance and Movements; NL JVP, Trachea Midline Respiratory: Symmetrical Chest Expansion and Respiratory Effort, Clear to Auscultation Cardiovascular: NL Sounds; No Murmurs; No JVD, RRR Abdominal: NL Sounds; No Tenderness; No Distention Extremities: No Edema Skin: No Rash or Ulcers, - - Incision to anterior neck w/ steri strips, ANA drain in place draining bloody drainage. Ecchymosis to right side of neck. Neurological: Alert and Oriented x 3, NL Muscle Strength and Tone Lines/Tubes/Other Access: Clean, Dry and Intact Peripheral IV - x 2 sites benign Nutrition: Taking PO's Result Diagrams: 04/30/16 11:38 Assess/Plan/Problems-Billing Assessment: Mr. Eli is a 70 yo male with PMH significant for COPD, pulmonary HTN, Paroxysmal afib, DARRELL and Graves' disease who presented to the hospital for an elective total thyroidectomy with Dr. Adan. - Patient Problems (1) Status post total thyroidectomy Code(s): E89.0 - POSTPROCEDURAL HYPOTHYROIDISM SNOMED Code(s): 592912501 Comment: - POD #2. Pt required a return to the OR for control of bleeding POD. - Management per Dr. Adan - Negative Chvostek's and Trousseau's signs - Continue to trend HH and Calcium - Pt able to pass swallow eval, suspect that dysphagia is r/t inflammation from surgery - Encourage oral pain medication (2) History of coronary artery disease Code(s): Z86.79 - PERSONAL HISTORY OF OTHER DISEASES OF THE CIRCULATORY SYSTEM SNOMED Code(s): 911879888 Comment: - Denies chest discomfort - Continue statin and beta-george - Resume Eliquis when bleeding risk has been minimalized (3) Urinary retention Code(s): R33.9 - RETENTION OF URINE, UNSPECIFIED SNOMED Code(s): 556256182 Comment: - Resolved (4) DARRELL (obstructive sleep apnea) Code(s): G47.33 - OBSTRUCTIVE SLEEP APNEA (ADULT) (PEDIATRIC) SNOMED Code(s): 18492260 Comment: - CPAP while napping and at HS (5) COPD (chronic obstructive pulmonary disease) Code(s): J44.9 - CHRONIC OBSTRUCTIVE PULMONARY DISEASE, UNSPECIFIED SNOMED Code(s): 98167733 Comment: - No exacerbation at this time (6) Paroxysmal a-fib Code(s): I48.0 - PAROXYSMAL ATRIAL FIBRILLATION SNOMED Code(s): 770911659 Comment: - Sinus rhythm earlier today on tele, Regular on exam - Continue Metoprolol - Resume Eliquis when bleeding risk is minimalized (7) H/O malignant neoplasm of rectum Code(s): Z85.048 - PRSNL HX OF MALIG NEOPLM OF RECTUM, RECTOSIG JUNCT, AND ANUS SNOMED Code(s): 587989466 Comment: - No issues - Routine ostomy care (8) Pulmonary HTN Code(s): I27.2 - OTHER SECONDARY PULMONARY HYPERTENSION SNOMED Code(s): 35324544 Comment: - Likely associated with COPD. - Continue supplemental O2 PRN. (9) DVT prophylaxis Code(s): OEQ4114 - SNOMED Code(s): 704601657 Comment: - SCDs, only in the setting of a post-op bleed (10) Full code status Current Visit: No Code(s): Z78.9 - OTHER SPECIFIED HEALTH STATUS SNOMED Code (s): 510237292 Status and Disposition: Inpatient. Possible discharge in the AM.
[2016-05-01] MEDS ORDERED: Morphine INJ* 2 MG/ML 1 ML SYRINGE IV PRN (17:41)
[2016-05-01] MEDS: Atorvastatin* 10 MG TAB PO SCH (17:52)
[2016-05-01] MEDS: HYDROcodone/ACET. 7.5/325 LIQ* 15 ML UDC PO PRN (19:50)
[2016-05-01] MEDS ORDERED: CLORAZEPATE 7.5 MG PO SCH (21:00)
[2016-05-02] MEDS: HYDROcodone/ACET. 7.5/325 LIQ* 15 ML UDC PO PRN ×4 (07:48→23:48)
[2016-05-02] MEDS: Citalopram TAB* 10 MG PO SCH (07:51)
[2016-05-02] MEDS ORDERED: Metoprolol Tartrate TAB* 25 MG PO SCH (09:00)
[2016-05-02] MEDS: LORazepam INJ* 2 MG/ML 1 ML VIAL IV PUSH PRN ×2 (13:54→23:36)
--- NOTE | 2016-05-02 14:37 | DCNOTE ---
Subjective Date of Service: 05/02/16 Interval History: NO DC TODAY Patient was supposed to be discharged to home but reported he has not been OOB for 4 days. Per nursing staff he has been OOB to chair and has sat on the side of the bed. the patient was ambulated with walker and reported mild dizziness and mild weakness. Plan to keep patient and continue ambulation with plan for DC tomorrow. Daughter and pt agree The patient reports his pain is controlled. no fevers or chills. Tolerating soft diet. reports good appetite. No SOB or CP Family History: Unchanged from Admission Social History: Unchanged from Admission Past Medical History: Unchanged from Admission Objective Active Medications: Hydrocodone Bitart/Acetaminophen ([place] 7.5/325 Liq*) 5 ml PO Q4H PRN PRN Reason: PAIN Last Admin: 05/02/16 13:53 Dose: 5 ml Atorvastatin Calcium (Lipitor*) 10 mg PO 1700 [facility] Last Admin: 05/01/16 17:52 Dose: 10 mg Citalopram Hydrobromide (Celexa Tab*) 10 mg PO DAILY [facility] Last Admin: 05/02/16 07:51 Dose: 10 mg Lorazepam (Ativan Inj*) 0.5 mg IV PUSH Q6H PRN PRN Reason: ANXIETY Last Admin: 05/02/16 13:54 Dose: 0.5 mg Metoprolol Tartrate (Lopressor Tab*) 12.5 mg PO DAILY [facility] Last Admin: 05/02/16 07:54 Dose: 12.5 mg Morphine Sulfate (Morphine Inj (Syringe)*) 2 mg IV Q4H PRN PRN Reason: PAIN - SEVERE Last Admin: 05/01/16 23:38 Dose: 2 mg Ondansetron HCl (Zofran Inj*) 4 mg IV Q6H PRN PRN Reason: NAUSEA Quetiapine Fumarate (Seroquel Tab*) 25 mg PO BEDTIME PRN PRN Reason: SLEEP Sodium Chloride (Sodium Chloride 0.65% Nasal [place]*) 1 spray BOTH NARES Q4H PRN PRN Reason: CONGESTION Vital Signs 05/01/16 05/01/16 05/01/16 15:31 15:38 16:20 Temperature 98.1 F Pulse Rate 79 79 Respiratory 18 18 16 Rate Blood Pressure 114/56 114/56 (mmHg) O2 Sat by Pulse 100 100 Oximetry 05/01/16 05/01/16 05/01/16 16:29 17:20 17:29 Temperature Pulse Rate Respiratory 16 16 16 Rate Blood Pressure (mmHg) O2 Sat by Pulse Oximetry 05/01/16 05/01/16 05/01/16 19:19 19:50 20:00 Temperature 98.9 F Pulse Rate 69 Respiratory 14 14 16 Rate Blood Pressure 102/56 (mmHg) O2 Sat by Pulse 95 Oximetry 05/01/16 05/01/16 05/01/16 21:50 23:33 23:38 Temperature 98.9 F Pulse Rate 63 Respiratory 16 16 16 Rate Blood Pressure 97/54 (mmHg) O2 Sat by Pulse 92 Oximetry 05/02/16 05/02/16 05/02/16 00:38 03:22 07:38 Temperature 98.7 F 99.3 F Pulse Rate 54 56 Respiratory 16 16 14 Rate Blood Pressure 102/56 128/61 (mmHg) O2 Sat by Pulse 98 97 Oximetry 05/02/16 05/02/16 05/02/16 07:45 07:48 07:55 Temperature Pulse Rate 76 Respiratory 16 16 Rate Blood Pressure (mmHg) O2 Sat by Pulse Oximetry 05/02/16 05/02/16 05/02/16 09:48 13:53 13:54 Temperature Pulse Rate Respiratory 17 16 16 Rate Blood Pressure (mmHg) O2 Sat by Pulse Oximetry Oxygen Devices in Use Now: Nasal Cannula - 2L while sleeping Appearance: 70 yo male laying in bed A+O x3 in NAD Eyes: No Scleral Icterus, PERRLA Ears/Nose/Mouth/Throat: NL Teeth, Lips, Gums, Mucous Membranes Moist Neck: - - incision to lower anteriorneck with with steri-strip/dressing - some small amount of dried blood otherwise intact. no erythema or drainage noted Respiratory: Symmetrical Chest Expansion and Respiratory Effort, Clear to Auscultation Cardiovascular: NL Sounds; No Murmurs; No JVD, RRR Abdominal: NL Sounds; No Tenderness; No Distention Extremities: No Edema, No Clubbing, Cyanosis Skin: No Rash or Ulcers, No Nodules or Sclerosis Neurological: Alert and Oriented x 3, NL Sensation, NL Gait, NL Muscle Strength and Tone Lines/Tubes/Other Access: Clean, Dry and Intact Peripheral IV Nutrition: Taking PO's Result Diagrams: 04/30/16 11:38 Assess/Plan/Problems-Billing Assessment: Mr. Eli is a 70 yo male with PMH significant for COPD, pulmonary HTN, Paroxysmal afib, DARRELL and Graves' disease who presented to the hospital for an elective total thyroidectomy with Dr. Adan. - Patient Problems (1) Status post total thyroidectomy Comment: - POD #3. Post-op bleeding /. HH stable - Management per Dr. Adan - ok to DC to home. low bleeding risk - Negative Chvostek's and Trousseau's signs - Pt able to pass swallow eval, suspect that dysphagia is r/t inflammation from surgery - Encourage oral pain medication - Per ENT - throid medication and pain medication have been sent in for the patient. No need for f/u labs. May resume Eliquis wednesday. Follow up with Dr. Adan and Dr. Linder this week. (2) History of coronary artery disease Comment: - Denies chest discomfort - Continue statin and beta-george - Resume Eliquis Wednesday per ENT (3) Urinary retention Comment: - Resolved (4) DARRELL (obstructive sleep apnea) Comment: - CPAP while napping and at HS (5) COPD (chronic obstructive pulmonary disease) Comment: - No exacerbation at this time (6) H/O malignant neoplasm of rectum Comment: - No issues - Routine ostomy care (7) Paroxysmal a-fib Comment: - Sinus rhythm - Continue Metoprolol - Resume Eliquis Wednesday per ENT (8) Pulmonary HTN Comment: - Likely associated with COPD. - Continue supplemental O2 PRN. (9) Full code status (10) DVT prophylaxis Comment: - SCDs, only in the setting of a post-op bleed Status and Disposition: Inpatient. Plan for DC home today but patient was too weak to go home. plan to encourage ambulation and plan on DC home tomorrow.
[2016-05-02] MEDS: Atorvastatin* 10 MG TAB PO SCH (16:28)
[2016-05-03 07:12] LABS: BUN/Creatinine Ratio 12.2 (8-20); Calcium 8.5 mg/dL (8.6-10.3); EGFR African American 134.9 (>60); EGFR Non-African American 104.9 (>60)
[2016-05-03 07:14] LABS: Hematocrit 23 % (42-52); Mean Corpuscular HGB Conc 34 g/dl (31-36); Mean Corpuscular Hemoglobin 31 pg (27-31); Mean Corpuscular Volume 92 fL (80-94); Mean Platelet Volume 8 um3 (7.4-10.4); Red Blood Count 2.56 10^6/ul (4.0-5.4); Red Cell Distribution Width 14 % (10.5-15); White Blood Count 7.2 10^3/ul (3.5-10.8)
--- NOTE | 2016-05-03 08:33 | DCNOTE ---
Subjective Date of Service: 05/03/16 Interval History: Per nursing staff and patient he ambulated multiple times around the unit last evening without walker with a steady gait. He reports he feels much more con Family History: Unchanged from Admission Social History: Unchanged from Admission Past Medical History: Unchanged from Admission Objective Active Medications: Hydrocodone Bitart/Acetaminophen (Nortab 7.5/325 Liq*) 5 ml PO Q4H PRN PRN Reason: PAIN Last Admin: 05/02/16 23:48 Dose: 5 ml Atorvastatin Calcium (Lipitor*) 10 mg PO 1700 [facility] Last Admin: 05/02/16 16:28 Dose: 10 mg Citalopram Hydrobromide (Celexa Tab*) 10 mg PO DAILY [facility] Last Admin: 05/02/16 07:51 Dose: 10 mg Lorazepam (Ativan Inj*) 0.5 mg IV PUSH Q6H PRN PRN Reason: ANXIETY Last Admin: 05/02/16 23:36 Dose: 0.5 mg Metoprolol Tartrate (Lopressor Tab*) 12.5 mg PO DAILY [facility] Morphine Sulfate (Morphine Inj (Syringe)*) 2 mg IV Q4H PRN PRN Reason: PAIN - SEVERE Last Admin: 05/01/16 23:38 Dose: 2 mg Ondansetron HCl (Zofran Inj*) 4 mg IV Q6H PRN PRN Reason: NAUSEA Quetiapine Fumarate (Seroquel Tab*) 25 mg PO BEDTIME PRN PRN Reason: SLEEP Sodium Chloride (Sodium Chloride 0.65% Nasal [place]*) 1 spray BOTH NARES Q4H PRN PRN Reason: CONGESTION Vital Signs 05/02/16 05/02/16 05/02/16 07:38 07:45 07:48 Temperature 99.3 F Pulse Rate 56 Respiratory 14 16 16 Rate Blood Pressure 128/61 (mmHg) O2 Sat by Pulse 97 Oximetry 05/02/16 05/02/16 05/02/16 07:55 09:48 13:53 Temperature Pulse Rate 76 Respiratory 17 16 Rate Blood Pressure (mmHg) O2 Sat by Pulse Oximetry 05/02/16 05/02/16 05/02/16 13:54 14:51 15:48 Temperature 97.7 F Pulse Rate 66 Respiratory 16 17 18 Rate Blood Pressure 122/57 (mmHg) O2 Sat by Pulse 94 Oximetry 05/02/16 05/02/16 05/02/16 15:53 18:50 19:45 Temperature Pulse Rate Respiratory 15 15 16 Rate Blood Pressure (mmHg) O2 Sat by Pulse Oximetry 05/02/16 05/02/16 05/02/16 20:04 20:50 23:33 Temperature 99.3 F Pulse Rate 62 52 Respiratory 16 16 16 Rate Blood Pressure 125/60 130/61 (mmHg) O2 Sat by Pulse 96 96 Oximetry 05/02/16 05/02/16 05/02/16 23:36 23:45 23:48 Temperature 98.5 F Pulse Rate Respiratory 16 16 Rate Blood Pressure (mmHg) O2 Sat by Pulse Oximetry 05/03/16 05/03/16 05/03/16 00:36 01:48 03:49 Temperature 99.4 F Pulse Rate 54 Respiratory 16 16 14 Rate Blood Pressure 128/61 (mmHg) O2 Sat by Pulse 97 Oximetry 05/03/16 07:41 Temperature 98.5 F Pulse Rate 53 Respiratory 18 Rate Blood Pressure 127/66 (mmHg) O2 Sat by Pulse 96 Oximetry Oxygen Devices in Use Now: Nasal Cannula - 2L while sleeping Appearance: 70 yo male A+O x3 in NAD. Eyes: No Scleral Icterus, PERRLA Ears/Nose/Mouth/Throat: NL Teeth, Lips, Gums Neck: NL Appearance and Movements; NL JVP, Trachea Midline, - - incision noted anterior base of neck with no erythema or drainage noted; dressing intact, some noted ecchymosis to right lower neck from anterior spresdiing to lateral - appears to be healing Respiratory: Symmetrical Chest Expansion and Respiratory Effort, Clear to Auscultation Cardiovascular: NL Sounds; No Murmurs; No JVD, RRR, No Edema Abdominal: NL Sounds; No Tenderness; No Distention Extremities: No Edema, No Clubbing, Cyanosis Skin: No Rash or Ulcers, No Nodules or Sclerosis Neurological: Alert and Oriented x 3, NL Sensation, NL Gait, NL Muscle Strength and Tone Lines/Tubes/Other Access: Clean, Dry and Intact Peripheral IV Nutrition: Taking PO's Result Diagrams: 05/03/16 06:33 05/03/16 06:33 Assess/Plan/Problems-Billing Assessment: Mr. Eli is a 70 yo male with PMH significant for COPD, pulmonary HTN, Paroxysmal afib, DARRELL and Graves' disease who presented to the hospital for an elective total thyroidectomy with Dr. Adan. - Patient Problems (1) Status post total thyroidectomy Comment: - POD #4. Post-op bleeding 3/. HH stable - Management per Dr. Adan - ok to DC to home. low bleeding risk - Negative Chvostek's and Trousseau's signs - Pt able to pass swallow eval - Encourage oral pain medication - Per ENT - thyroid medication and pain medication have been sent in for the patient. No need for f/u labs. May resume Eliquis wednesday. Follow up with Dr. Adan and Dr. Linder this week. Hold parameters for BB (2) History of coronary artery disease Comment: - Denies chest discomfort - Continue statin and beta-george (hold parameter for BB) - Resume Eliquis Wednesday per ENT (3) Urinary retention Comment: - Resolved (4) DARRELL (obstructive sleep apnea) Comment: - CPAP while napping and at HS (5) COPD (chronic obstructive pulmonary disease) Comment: - No exacerbation at this time (6) H/O malignant neoplasm of rectum Comment: - No issues - Routine ostomy care (7) Paroxysmal a-fib Comment: - Sinus rhythm - Continue Metoprolol - Resume Eliquis Wednesday per ENT (8) Pulmonary HTN Comment: - Likely associated with COPD. - Continue supplemental O2 PRN. (9) Full code status (10) DVT prophylaxis Comment: - SCDs, only in the setting of a post-op bleed Status and Disposition: Inpatient. Plan for DC home today -
[2016-05-03] MEDS: Metoprolol Tartrate TAB* 25 MG PO SCH ×2 (09:13→12:03)
[2016-05-03] MEDS: Citalopram TAB* 10 MG PO SCH (09:14)
[2016-05-03] MEDS: HYDROcodone/ACET. 7.5/325 LIQ* 15 ML UDC PO PRN (12:04)
[2016-05-03 13:13] VITALS: BP 137/68
--- NOTE | 2016-05-03 13:29 | DS ---
DISCHARGE SUMMARY: DATE OF ADMISSION: 04/29/16 DATE OF DISCHARGE: 05/03/16 ATTENDING PHYSICIAN: Cosme Buck MD* (report dictated by Allison Arreguin NP). PRIMARY CARE PHYSICIAN: So Ruiz NP GLUE MIXER: Dr. Linder. ENT: Dr. Adan. PRIMARY DIAGNOSIS: Status post elective total thyroidectomy. SECONDARY DIAGNOSES: 1. History of presyncope. 2. Chronic obstructive pulmonary disease. 3. Obstructive sleep apnea, on CPAP. 4. History of rectal carcinoma, status post radiation and chemotherapy. 5. Arthritis. 6. Chronic back pain. 7. Paroxysmal atrial fibrillation. 8. History of Elise-Guerrero tear. DISCHARGE MEDICATIONS: 1. Lipitor 10 mg p.o. q.a.m. 2. Celexa 10 mg p.o. daily. 3. Tranxene 7.5 mg p.o. q.p.m. 4. Methimazole 10 mg p.o. b.i.d. 5. Metoprolol tartrate 12.5 mg p.o. daily. "Hold parameters if the heart rate is less than 60 or systolic blood pressure less than 100." 6. Seroquel 25 mg p.o. at bedtime p.r.n. as needed for sleep. 7. Calcium carbonate 600 mg p.o. t.i.d. 8. Percocet 5/325 mg 1 to 2 tabs p.o. q.6 hours p.r.n. pain. This prescription has been sent in by Dr. Adan. Medication to be restarted on 05/04/16 per Maria Isabel Dengquis 5 mg p.o. b.i.d. HISTORY OF PRESENT ILLNESS AND HOSPITAL COURSE: Please see history and physical by Christiana Oh NP, for full admission detail, but in summary, this is a 70-year-old male who underwent an elective total thyroidectomy on 04/29/[address] Adan. The patient was admitted to the hospitalist service and was monitored in the ICU from the OR with a ANA drain. The patient's hospitalization was complicated by postop bleeding in which the patient was noted to be oozing blood from his neck incision and ANA drain, so immediately, Dr. Adan took the patient back to the OR emergently where Dr. Adan noted the patient had a postop hematoma and the patient underwent evacuation of the hematoma and the hemorrhage was controlled. It was thought that the patient approximately had a 500 mL intraoperative blood loss, a total of about 1000 mL for the entire encounter. Per Dr. Adan's note, this happened approximately 2 hours after the initial surgery, most likely secondary to a coughing fit. The patient stabilized quickly. He did not require a blood transfusion. His hemoglobin has remained stable, with the hemoglobin between 8 and 9. It is noted that the patient's hemoglobin on 04/22/16 from preop labs was 14.1. The patient denies any dizziness, lightheadedness, or weakness. The patient underwent a video fluoroscope swallowing evaluation, which showed mild oropharyngeal dysphagia. The patient has tolerated a soft diet well without any coughing or choking. I evaluated the patient last evening for anticipated discharge; however, the patient reported he had not been out of bed for several days and felt unsteady to be discharged home. The patient was ambulated multiple times in the unit last evening and this morning and the patient has a steady gait with no use of walker and is independent in his ambulation and getting out of bed to chair and using the bathroom. The patient feels much better about returning to home today. BMP was checked this morning, which was within normal limits except calcium of 8.5. The patient will be sent home on calcium carbonate supplementations. The patient's heart rate is noted to be between the 50s and 80s throughout hospitalization, more so in the last 24 hours of heart rate in the 50s. This does increase with ambulation. The patient's metoprolol was held this morning due to a heart rate of 60. I instructed the patient to take his pulse and hold the medication if his heart rate is less than 60. DISCHARGE PLAN: 1. The patient is stable for discharge to home. I spoke with Dr. Adan yesterday who states the patient's bleeding risk is very low at this point and from his standpoint, could be discharged. He recommends restarting Eliquis tomorrow, Wednesday05/04/16. No need to check labs this week as outpatient per Dr. Adan. Okay to shower and get surgical tape wet. Plan to follow up with Dr. Adan on , in which he will remove the stitches at that time. 2. Follow up with Dr. Linder. The patient already has a previously scheduled appointment. 3. Follow up with So Ruiz NP, 05/05/16, at 10 a.m. 4. Lifetime has been set up for the patient. DIET: Soft diet advanced to regular as tolerated. ACTIVITY: Light. TIME SPENT: Approximately 60 minutes was spent on this discharge. ALLISON ARREGUIN NP CC: So Ruiz NP; Dr. Linder; Dr. Adan * [id number]/CPS #: [id number] [facility]
== END 2016-05-03 12:25 | disposition home or self-care (01) | DRG 626 ==
LOC: AA 09:29 → EDSTATUS 11:00 → ICU 15:18 → SSU 05-01 15:33
PROVIDERS: ADMIT Otolaryngology; ATTEND Internal Medicine
PROC: 0W360ZZ Control Bleeding in Neck, Open Approach (ICD-10-PCS; 2016-04-29)
PROC: 0GTK0ZZ Resection of Thyroid Gland, Open Approach (ICD-10-PCS; principal; 2016-04-29 10:30)
DX: E05.00 Thyrotoxicosis with diffuse goiter without thyrotoxic crisis or storm (principal); E89.820 Postprocedural hematoma of an endocrine system organ or structure following an endocrine system procedure; I27.2 Other secondary pulmonary hypertension; I48.0 Paroxysmal atrial fibrillation; Z85.048 Personal history of other malignant neoplasm of rectum, rectosigmoid junction, and anus; J44.9 Chronic obstructive pulmonary disease, unspecified; G47.33 Obstructive sleep apnea (adult) (pediatric); G89.29 Other chronic pain; M54.9 Dorsalgia, unspecified; Y83.8 Other surgical procedures as the cause of abnormal reaction of the patient, or of later complication, without mention of misadventure at the time of the procedure; I25.10 Atherosclerotic heart disease of native coronary artery without angina pectoris; M54.5 Low back pain; R13.10 Dysphagia, unspecified; D64.9 Anemia, unspecified; Z82.49 Family history of ischemic heart disease and other diseases of the circulatory system; Z80.9 Family history of malignant neoplasm, unspecified; Z87.891 Personal history of nicotine dependence; M19.90 Unspecified osteoarthritis, unspecified site; R33.9 Retention of urine, unspecified
CPT/HCPCS: 36415; 72020; 74230; 80048; 82310; 83970; 85014; 85018; 85025; 85730; 86850; 86900; 86901; 86922; 88307; 94760; A9270-GY; G8996-GN-CH; G8997-GN-CH; G8998-GN-CH; J0330; J0690; J1170; J2060; J2250; J2270; J2704; J3010

== ENCOUNTER 2016-10-12 15:59 | Emergency (ER) | payer OTHER ==
[2016-10-12 17:28] LABS: Hematocrit 41 % (42-52); Mean Corpuscular HGB Conc 34 g/dl (31-36); Mean Corpuscular Hemoglobin 31 pg (27-31); Mean Corpuscular Volume 90 fL (80-94); Mean Platelet Volume 8 um3 (7.4-10.4); Red Blood Count 4.53 10^6/ul (4.0-5.4); Red Cell Distribution Width 15 % (10.5-15); White Blood Count 8.4 10^3/ul (3.5-10.8)
[2016-10-12 17:43] LABS: Albumin 4.1 g/dL (3.2-5.2); BUN/Creatinine Ratio 15.8 (8-20); Calcium 9.3 mg/dL (8.6-10.3); EGFR African American 130.4 (>60); EGFR Non-African American 101.4 (>60); Globulin 3.1 g/dL (2-4); Magnesium 2.2 mg/dL (1.9-2.7); Potassium 3.8 mmol/L (3.5-5.0); Total Bilirubin 0.4 mg/dL (0.2-1.0); Total Protein 7.2 g/dL (6.4-8.9)
[2016-10-12 20:41] VITALS: BP 148/74
--- NOTE | 2016-10-13 02:09 | ED ---
I, Oh,Sojen, scribed for Jake Tirado MD on 10/12/16 at 2001 . Upper Extremity Pain - HPI Summary HPI Summary: This 71 y/o male presents to ED for RUE hand cramping pain since 1100 AM this morning. Pain involves RUE #3 and #4 digit and radiates to RUE shoulder, and is describe sharp. Movement makes pain worse. Negative neck pain. and pt decided to visit ED when they became concerned with possible heart issues. PMHx includes afib with hx of anticoagulant treatment, hyperthyroidism s/p surgery by Dr. Adan, COPD, DARRELL, and rectal CA s/p radiation, chemo, and surgery. He has ostomy in place. PMHx does not include DM. Pt is right handed. He admits to some right hand use for lawn mowing, but denies any extraneous activities. Pt is currently retired. - History of Current Complaint Chief Complaint: EDGeneral Stated Complaint: HEART ISSUES Hx Obtained From: Patient, Medical Records Onset/Duration: Started Hours Ago, Atraumatic, Still Present Timing: Constant Pain Location: Shoulder - RUE shoulder, Finger - RUE #3 and #4 digits Character: Sharp Aggravating Factor(s): Movement Alleviating Factor(s): Nothing Associated Signs & Symptoms: Negative: Fever, Neck Pain - Allergies/Home Medications Allergies/Adverse Reactions: Allergies Allergy/AdvReac Type Severity Reaction Status Date / Time No Known Allergies Allergy Verified 04/29/16 09:24 Home Medications: Home Medications Levothyroxine TAB* [Synthroid TAB*] 112 mcg PO DAILY 10/12/16 [History Confirmed 10/12/16] Sertraline* [Zoloft*] 50 mg PO DAILY 10/12/16 [History Confirmed 10/12/16] PMH/Surg Hx/FS Hx/Imm Hx Endocrine/Hematology History: Reports: Hx Thyroid Disease - hyperthyroidism Denies: Hx Diabetes, Hx Systemic Lupus Erythematosus, Hx Anemia, Hx Unexplained Bleeding Cardiovascular History: Reports: Hx Coronary Artery Disease, Hx Hypertension Denies: Hx Aneurysm, Hx Angina, Hx Angioplasty, Hx Auto Implanted Cardiovert Defib, Hx Cardiac Arrest, Hx Cardiomegaly, Hx Congenital Heart Disease, Hx Congestive Heart Failure, Hx Deep Vein Thrombosis, Hx Embolism, Hx Hypercholesterolemia, Hx Hypotension, Hx Myocardial Infarction, Hx Pacemaker/ICD , Hx Peripheral Vascular Disease, Hx Rheumatic Fever, Hx Syncope, Hx Valvular Heart Disease, Other Cardiovascular Problems/Disorders Respiratory History: Reports: Hx Chronic Obstructive Pulmonary Disease (COPD), Hx Seasonal Allergies, Hx Sleep Apnea Denies: Hx Asthma, Hx Chronic Bronchitis, Hx Cystic Fibrosis, Hx Lung Cancer , Hx Pleural Effusion, Hx Pneumonia, Hx Pulmonary Edema, Hx Pulmonary Embolism, Other Respiratory Problems/Disorders GI History: Reports: Hx Ileostomy, Other GI Disorders - rectal cancer, with ileostomy, had radiation and chemo Denies: Hx Cirrhosis, Hx Crohn's Disease, Hx Diverticulosis, Hx Gall Bladder Disease, Hx Gastroesophageal Reflux Disease, Hx Gastrointestinal Bleed, Hx Hiatal Hernia, Hx Irritable Bowel, Hx Jaundice, Hx Obstructive Bowel, Hx Pyloric Stenosis, Hx Ulcer History: Denies: Hx Acute Renal Failure, Hx Benign Prostatic Hyperplasia, Hx Chronic Renal Failure, Hx Dialysis, Hx Kidney Infection, Hx Kidney Stones, Hx Renal Disease, Other Problems/Disorders Musculoskeletal History: Reports: Hx Back Problems Denies: Hx Arthritis, Hx Rheumatoid Arthritis, Hx Bursitis, Hx Congenital Bone Abnormalities, Hx Fibromyalgia, Hx Gout, Hx Orthopedic Injury, Hx Osteoporosis, Hx Scoliosis, Hx Tendonitis, Other Musculoskeletal History Sensory History: Reports: Hx Contacts or Glasses Opthamlomology History: Reports: Hx Contacts or Glasses Neurological History: Denies: Hx Dementia, Hx Developmental Delay, Hx Headaches, Hx Migraine, Hx Nerve Disease, Hx Seizures, Hx Spinal Cord Injury, Hx Transient Ischemic Attacks (TIA), Other Neuro Impairments/Disorders Psychiatric History: Reports: Hx Anxiety, Hx Depression Denies: Hx Attention Deficit Hyperactivity Disorder, Hx Eating Disorder, Hx Panic Disorder, Hx Post Traumatic Stress Disorder, Hx Inpatient Treatment, Hx Community Mental Health Tx, Hx Schizophrenia, Hx Bipolar Disorder, Hx Suicide Attempt, Hx of Violent Episodes Against Others, Hx Substance Abuse, Other Psychiatric Issues/Disorders - Cancer History Cancer Type, Location and Year: RECTAL CANCER 6 YEARS AGO Hx Chemotherapy: Yes Hx Radiation Therapy: Yes Hx Palliative Cancer Treatment: No - Surgical History Surgery Procedure, Year, and Place: STOMA TO LEFT SIDE APROX 7 YEARS AGO, RIGHT KNEE SURGERY, TONSILECTOMY Hx Anesthesia Reactions: No - Immunization History Date of Tetanus Vaccine: utd Date of Influenza Vaccine: fall 2015 Infectious Disease History: No Infectious Disease History: Denies: Hx Clostridium Difficile, Hx Hepatitis, Hx Human Immunodeficiency Virus (HIV), Hx of Known/Suspected MRSA, Hx Shingles, Hx Tuberculosis, History Other Infectious Disease, Traveled Outside the [place] in Last 30 Days - Family History Known Family History: Negative: Cardiac Disease, Hypertension - Social History Alcohol Use: Rare Alcohol Amount: 3-6 beers/day Substance Use Type: Reports: None Substance Use Comment - Amount & Last Used: none in last 5 days, per pt, d/t illness Hx Tobacco Use: Yes Smoking Status (MU): Former Smoker Type: Cigarettes Amount Used/How Often: 40 Length of Time of Smoking/Using Tobacco: 40 Have You Smoked in the Last Year: No Review of Systems Negative: Fever Positive: Other - RUE hand pain with #3 and #4 involvement All Other Systems Reviewed And Are Negative: Yes Physical Exam - Summary Physical Exam Summary: The patient is well-nourished in no acute distress and in no acute pain. The skin is warm and dry and skin color reflects adequate perfusion. HEENT: The head is normocephalic and atraumatic. The pupils are equal and reactive. The conjunctivae are clear and without drainage. Nares are patent and without drainage. Mouth reveals moist mucous membranes and the throat is without erythema and exudate. The external ears are intact. The ear canals are patent and without drainage. The tympanic membranes are intact. Neck is supple with full range of motion and non-tender. There are no carotid bruits. There is no neck vein distension. Respiratory: Chest is non-tender without reproducible chest wall pain. Lungs are clear to auscultation and breath sounds are symmetrical and equal. Cardiovascular: Heart is regular rate and rhythm. There is no murmur or rub auscultated. There is no peripheral edema and pulses are symmetrical and equal. Abdomen: The abdomen is soft and non-tender. There are normal bowel sounds heard in all four quadrants and there is no organomegaly palpated. Musculoskeletal: There is no back pain noted. Extremities are non-tender with full range of motion. There is good capillary refill. There is no peripheral edema or calf tenderness elicited. Neurological: Patient is alert and oriented to person, place and time. The patient has symmetrical motor strength in all four extremities. No sensory deficit. Cranial nerves are grossly intact. DTR intact at bilat lower extremities both at achiles and patella. Psychiatric: The patient has an appropriate affect and does not exhibit any anxiety or depression. RUE hand: No focal weakness at flexion and extention of elbow and shoulder. Radial, medial, ulnar nerve are intact. Mild inner osseous wasting at RUE hand. No light touch sensation deficiency. Negative Tinel Sign's and Phalen's maneuver. Triage Information Reviewed: Yes Vital Signs On Initial Exam: Initial Vitals Temp Pulse Resp BP Pulse Ox 99.1 F 56 18 153/79 95 10/12/16 16:12 10/12/16 16:12 10/12/16 16:12 10/12/16 16:12 10/12/16 16:12 Vital Signs Reviewed: Yes - [place] Coma Scale Coma Scale Total: 15 Diagnostics - Vital Signs Vital Signs Temp Pulse Resp BP Pulse Ox 10/12/16 19:00 55 15 93 10/12/16 18:43 55 12 96 10/12/16 17:07 99 F 53 14 128/67 95 10/12/16 16:20 98.5 F 10/12/16 16:12 99.1 F 56 18 153/79 95 - Laboratory Lab Results: Lab Results 10/12/16 10/12/16 10/12/16 Range/Units 17:15 17:15 17:15 WBC 8.4 (3.5-10.8) 10^3/ul RBC 4.53 (4.0-5.4) 10^6/ul Hgb 14.0 (14.0-18.0) g/dl Hct 41 L (42-52) % MCV 90 (80-94) fL MCH 31 (27-31) pg MCHC 34 (31-36) g/dl RDW 15 (10.5-15) % Plt Count 216 (150-450) 10^3/ul MPV 8 (7.4-10.4) um3 Neut % (Auto) 54.4 (38-83) % Lymph % (Auto) 29.5 (25-47) % [place] % (Auto) 9.7 H (1-9) % Eos % (Auto) 5.3 (0-6) % Baso % (Auto) 1.1 (0-2) % Absolute Neuts (auto) 4.6 (1.5-7.7) 10^3/ul Absolute Lymphs (auto) 2.5 (1.0-4.8) 10^3/ul Absolute Monos (auto) 0.8 (0-0.8) 10^3/ul Absolute Eos (auto) 0.4 (0-0.6) 10^3/ul Absolute Basos (auto) 0.1 (0-0.2) 10^3/ul Absolute Nucleated RBC 0.01 10^3/ul Nucleated RBC % 0.1 Sodium 137 (133-145) mmol/L Potassium 3.8 (3.5-5.0) mmol/L Chloride 106 (101-111) mmol/L Carbon Dioxide 25 (22-32) mmol/L Anion Gap 6 (2-11) mmol/L BUN 12 (6-24) mg/dL Creatinine 0.76 (0.67-1.17) mg/dL Est GFR ( Amer) 130.4 (>60) Est GFR (Non-Af Amer) 101.4 (>60) BUN/Creatinine Ratio 15.8 (8-20) Glucose 101 H (70-100) mg/dL Lactic Acid 0.8 (0.5-2.0) mmol/L Calcium 9.3 (8.6-10.3) mg/dL Magnesium 2.2 (1.9-2.7) mg/dL Total Bilirubin 0.40 (0.2-1.0) mg/dL AST 20 (13-39) U/L ALT 20 (7-52) U/L Alkaline Phosphatase 62 (34-104) U/L Total Protein 7.2 (6.4-8.9) g/dL Albumin 4.1 (3.2-5.2) g/dL Globulin 3.1 (2-4) g/dL Albumin/Globulin Ratio 1.3 (1-3) Result Diagrams: 10/12/16 17:15 10/12/16 17:15 Lab Statement: Any lab studies that have been ordered have been reviewed, and results considered in the medical decision making process. - EKG 1999 Cardiac Rate: Bradycardia EKG Rhythm: Sinus Bradycardia ST Segment: Normal EKG Interpretation: Sinus bradycardia at 50 bpm with artifacts. No STEMI 1841 Cardiac Rate: Bradycardia - at 57 bpm EKG Rhythm: Sinus Bradycardia ST Segment: Normal EKG Interpretation: Normal axis Re-Evaluation - Re-Evaluation First Eval Re-Evaluation Time: 20:45 Course/Dx - Course Assessment/Plan: This 71 y/o male presents to ED for sharp right hand pain that radiates to RUE shoulder. Pain is sharp and involves digit #3 and #4 and is worse with movement. Upon examination, pt is noted with negative carotid bruits , lungs CTA, and chest without reproducible pain. Negative Juve and Tinel at RUE wrist. Negative light touch sensation deficiency. Negative motor strength and FROM at RUE elbow and shoulder. Cardiac etiologies were r/o with normal EKG and negative troponin. Pt is diagnosed with right arm pain and Carpal Tunnel Syndrome. - Diagnoses Differential Diagnosis/HQI/PQRI: Positive: Other - coronary artery disease, cervical radiculopathy Provider Diagnoses: Right arm pain, Carpal tunnel syndrome of right wrist Discharge - Discharge Plan Condition: Stable Disposition: HOME Patient Education Materials: Arm Pain (ED) Referrals: So Ruiz, NEWS COPY EDITOR [Primary Care Provider] - 2 Days Additional Instructions: Wear brace on your right hand. The documentation as recorded by the Rehan de la torre Soohyun accurately reflects the service I personally performed and the decisions made by , Jake Tirado MD.
== END 2016-10-12 21:06 | disposition home or self-care (01) ==
LOC: ED 15:59
DX: G56.01 Carpal tunnel syndrome, right upper limb (principal); M79.601 Pain in right arm; Z87.891 Personal history of nicotine dependence
CPT/HCPCS: 36415; 80053; 83605; 83735; 84484; 85025; 93005; 99282

== ENCOUNTER 2022-05-05 21:13 | Observation (INO) ==
[2022-05-05] MEDS ORDERED: NS 0.9% 1000 ml BAG 1,000 ML IV ONE (21:39)
[2022-05-05 21:55] LABS: ABS Basophils 0.1 10^3/ul (0-0.2); ABS Eosinophils 0.3 10^3/ul (0-0.6); ABS Lymphocytes 1.2 10^3/ul (1.0-4.8); ABS Monocytes 0.6 10^3/ul (0-0.8); ABS Neutrophils 5.4 10^3/ul (1.5-7.7); Eosinophil % 4.1 %; Hematocrit 47 % (42-52); Hemoglobin 15.9 g/dL (14.0-18.0); Lymphocyte % 15.4 %; Mean Corpuscular HGB Conc 34 g/dL (31-36); Mean Corpuscular Hemoglobin 31 pg (27-31); Mean Corpuscular Volume 92 fL (80-94); Mean Platelet Volume 8.3 fL (7.4-10.4); Nucleated Red Blood Cells % 0.1; Platelet Count 201 10^3/uL (150-450); Red Blood Count 5.11 10^6 /uL (4.18-5.48); Red Cell Distribution Width 14 % (10-15); White Blood Count 7.5 10^3/uL (3.5-10.8)
[2022-05-05 22:18] LABS: High Sens Troponin Baseline 39 pg/mL (<20)
[2022-05-05 22:29] LABS: ALT 36 U/L (7-52); AST 33 U/L (13-39); Albumin 4.2 g/dL (3.2-5.2); Albumin/Globulin Ratio 1.7 (1-3); Alcohol, S < 13 mg/dL (<13); Alkaline Phosphatase 65 U/L (35-149); Anion Gap 9 mmol/L (2-11); Blood Urea Nitrogen 18 mg/dL (6-24); CO2 Carbon Dioxide 23 mmol/L (22-32); Calcium 9.5 mg/dL (8.6-10.3); Chloride 106 mmol/L (101-111); Creatinine, Serum 1.13 mg/dL (0.67-1.17); Globulin 2.5 g/dL (2-4); Glucose 133 mg/dL (70-100); Magnesium 2.2 mg/dL (1.9-2.7); Potassium 3.7 mmol/L (3.5-5.0); Sodium 138 mmol/L (135-145); Total Protein 6.7 g/dL (6.4-8.9); eGFR CKD-EPI 67.8 (>60)
[2022-05-05 22:43] LABS: TSH Ultra Thyroid Stim Horm 5.55 mcIU/mL (0.34-5.60)
[2022-05-05 23:19] LABS: High Sensitivity Troponin 1 Hr 83 pg/mL (<20)
[2022-05-06 02:48] LABS: High Sensitivity Troponin 3 Hr 123 pg/mL (<20)
[2022-05-06] MEDS ORDERED: Senna TAB 8.6 mg TAB PO PRN (04:30)
[2022-05-06] MEDS ORDERED: Magnesium Hydroxide LIQ 30 ML UDC PO PRN (04:30)
[2022-05-06] MEDS ORDERED: NS 0.9% 1000 ml BAG 1,000 ML IV SCH (04:30)
[2022-05-06 04:59] LABS: Cholesterol 123 mg/dL; LDL Cholesterol 56 mg/dL; Triglycerides 99 mg/dL
[2022-05-06] MEDS ORDERED: Enoxaparin 40 MG/0.4 ML SYR SUBCUT SCH (05:00)
[2022-05-06 06:00] LABS: Creatinine, Serum 1.03 mg/dL (0.67-1.17); Potassium 4.3 mmol/L (3.5-5.0)
[2022-05-06 06:01] LABS: Calcium 9.2 mg/dL (8.6-10.3); eGFR CKD-EPI 75.8 (>60)
[2022-05-06] MEDS ORDERED: Regadenoson 0.4 MG/5 ML SYRINGE ONE (08:18)
[2022-05-06 11:32] LABS: High Sensitivity Troponin 1 Hr 54 pg/mL (<20)
[2022-05-06 14:40] VITALS: BP 138/68
== END 2022-05-06 14:39 | disposition home or self-care (01) ==
LOC: EDHOLD 21:13 → ED 21:13 → SUATTDRO 05-06 04:30 → EDHOLD 05-06 14:38
PROVIDERS: ADMIT Student in an Organized Health Care Education/Training Program; ATTEND Internal Medicine

== ENCOUNTER 2023-01-14 17:39 | Observation (INO) ==
[2023-01-14 18:11] LABS: ABS Eosinophils 0.4 10^3/uL (0.0-0.5); ABS Lymphocytes 1.3 10^3/uL (1.0-4.8); ABS Monocytes 0.7 10^3/uL (0.0-1.1); Eosinophil % 5.6 %; Hematocrit 42.3 % (38-53); Hemoglobin 14.6 g/dL (13.2-16.3); Lymphocyte % 20.2 %; Mean Corpuscular Hemoglobin 32.7 pg (27-33); Mean Corpuscular Hgb Conc 34.5 g/dL (31-36); Mean Corpuscular Volume 94.7 fL (80-97); Mean Platelet Volume 8.5 fL (7.5-11.2); Platelet Count 199 10^3/uL (150-450); Red Blood Count 4.47 10^6/uL (4.06-5.63); Red Cell Distribution Width 13.1 % (12-17); White Blood Count 6.4 10^3/uL (3.6-10.2)
[2023-01-14 18:31] LABS: Albumin/Globulin Ratio 1.6 (1-3); Calcium 9.1 mg/dL (8.6-10.3); Globulin 2.5 g/dL (2-4); Potassium 4.2 mmol/L (3.5-5.0); Total Bilirubin 0.3 mg/dL (0.2-1.0); Total Protein 6.5 g/dL (6.4-8.9)
[2023-01-14 18:47] LABS: TSH Ultra Thyroid Stim Horm 6.51 mcIU/mL (0.34-5.60)
[2023-01-14 18:49] LABS: Free T4 0.91 ng/dL (0.61-1.12)
[2023-01-14 19:56] LABS: High Sensitivity Troponin 1 Hr 51 pg/mL (<20)
[2023-01-14 21:37] LABS: High Sensitivity Troponin 3 Hr 92 pg/mL (<20)
[2023-01-14] MEDS ORDERED: Senna TAB 8.6 mg TAB PO PRN (21:46)
[2023-01-14] MEDS ORDERED: Polyethylene Glycol 3350 17 GM PACKET PO PRN (21:46)
[2023-01-14] MEDS ORDERED: Ondansetron 4 mg VIAL 2 MG/ML 2 ml VIAL IV PRN (21:46)
[2023-01-14] MEDS ORDERED: Enoxaparin 40 MG/0.4 ML SYR SUBCUT SCH (23:00)
[2023-01-15 00:57] LABS: High Sensitivity Troponin 3 Hr 83 pg/mL (<20)
[2023-01-15 06:48] LABS: Creatinine, Serum 0.83 mg/dL (0.67-1.17); HDL Cholesterol 45.3 mg/dL; Potassium 3.8 mmol/L (3.5-5.0); eGFR CKD-EPI 90.7 (>60)
[2023-01-15] MEDS ORDERED: Sulfur Hexaflouride MICROSPHR 25 MG VIAL ONE (07:53)
[2023-01-15 13:36] VITALS: BP 108/53
== END 2023-01-15 16:55 | disposition home or self-care (01) ==
LOC: EDHOLD 17:39 → ED 17:39 → SUATTDRO 21:46 → MEDTELE 22:45
PROVIDERS: ADMIT Internal Medicine; ATTEND Student in an Organized Health Care Education/Training Program